=== PATIENT | male | born 1985 | race Caucasian/White ===

== ENCOUNTER 2017-05-31 13:51 | Inpatient (IN) | payer BC ==
[~2017-05-31] VITALS: Ht 165.1 cm; Wt 117.8 kg
[2017-05-31] MEDS ORDERED: SODIUM CHLORIDE 0.9% 1000ML 1,000 ML IV STA ×2 (15:14→18:31)
--- NOTE | 2017-05-31 15:34 | EMERGENCY ROOM VISIT NOTE ---
History First contact with patient: 15:05 Chief Complaint: RESPIRATORY PROBLEMS Stated Complaint: SHALLOW BREATHING, CAN'T GET DEEP BREATH, RIB PAIN History of Present Illness The patient is a 32 year old male who presents to the Emergency Room via private vehicle with complaints of "shallow breathing, can't get deep breath, rib pain". Patient states that for the past few days he has had congestion, and recently flew from [facility]. He isn't feeling nauseous, shivering as well as having left shoulder pain with deep inspiration. He also notes pain in the left inferior rib cage with a deep breath. He feels as though in the left side he cannot take a deep breath. He notes mental cough, with slight mucus production. He denies any smoking, hormone use, recent bone fractures, history of blood clots, history of pneumonia. Review of Systems A complete 10-point Review of Systems was discussed with the patient, with pertinent positives and negatives listed in the History of Present Illness. All remaining Review of Systems questions can be considered negative unless otherwise specified. Past Medical/Surgical History Medical Problems: (1) Sepsis high blood pressure. Family History Heart disease, high blood pressure, cancer. Social History Smoking Status: Never Smoker Lives at home with and son. Employed Current/Historical Medications Scheduled PRN Dextromethorphan-Phenylephrine (Vicks Dayquil Cold & Flu), 1 DOSE PO UD PRN for Cold/Flu Symptoms Pseudoephedrine-Guaifenesin (Mucinex D), 1 TAB PO BID PRN for Congestion Physical Exam Vital Signs Date Time Temp Pulse Resp B/P (MAP) Pulse Ox O2 Delivery O2 Flow Rate FiO2 05/31/17 20:14 106 05/31/17 19:27 109 18 119/94 95 Room Air 05/31/17 17:31 96 20 121/78 99 Room Air 05/31/17 16:11 109 05/31/17 15:54 96 Room Air 05/31/17 15:54 104 20 146/89 98 Room Air 05/31/17 14:08 92 Room Air 05/31/17 13:58 37.6 120 18 145/91 92 Room Air Physical Exam VITAL SIGNS - Vital signs and nursing notes were reviewed. Stable. He is tachycardic at 120 bpm, and is saturating on room air at 92%. GENERAL -32-year-old male appearing his stated age who is in no acute distress. Communicates well with provider and answers questions appropriately. SKIN - Without rashes. No petechial rashes. HEAD - NC/AT. EYES - PERRL with EOMI bilaterally. Sclera anicteric. Palpebral conjunctiva pink and moist with no injection noted. EARS - No deformities of external structures noted on gross examination bilaterally. NOSE - Midline and without cyanosis. No epistaxis or purulent drainage noted. MOUTH/OROPHARYNX - Without perioral cyanosis. NECK - Neck with FROM. LUNGS - Chest wall symmetric without accessory muscle use, intercostals retractions, or central cyanosis. Decreased breath sounds in the left lower lobe. CARDIAC - RRR with S1/S2. No murmur, rubs, or gallops appreciated. ABDOMEN - Abdominal contour normal without pulsations or visible masses. BS normoactive all four quadrants. No tenderness, palpable masses, hepatosplenomegaly, or ascites noted. EXTREMITIES - No clubbing or peripheral cyanosis. No pretibial edema present. + 5/5 strength noted in UE/LE bilaterally. NEUROLOGIC - Cranial nerves II through XII grossly intact. Sensory intact to light touch throughout. PSYCH - A&O, and cooperates fully with examiner. Pt is very pleasant and interacts well with examiner. Medical Decision & Procedures ER Provider Diagnostic Interpretation: CHEST ONE VIEW PORTABLE CLINICAL HISTORY: Dyspnea COMPARISON STUDY: No previous studies for comparison. FINDINGS: The heart is normal in size. There is a left basilar airspace opacity, likely representing a pneumonia. Correlation with clinical symptoms is recommended. There are no pleural effusions. There is an azygos fissure.[ IMPRESSION: Left basal airspace opacity possibly representing a pneumonia. Please correlate with clinical findings. Radiographic follow-up is recommended. Electronically signed by: Marcelino Romero M.D. 05/31/2017 4:09 PM Dictated Date/Time: 05/31/2017 4:[address] ANGIOGRAM OF THE CHEST CLINICAL HISTORY: Shortness of breath, atypical chest pain. Abnormal chest x-ray. COMPARISON STUDY: Chest x-ray dated 05/31/2017 TECHNIQUE: Following the IV administration of 107 mL of Optiray-320, CT angiogram of the thorax was performed from the thoracic inlet to the lung bases utilizing the pulmonary embolus protocol. Images are reviewed in the axial, sagittal, and coronal planes. IV contrast was administered without complication. MIP imaging was performed. A dose lowering technique was utilized adhering to the principles of ALARA. CT DOSE: 671.30 mGycm FINDINGS: Incidental note is made of an azygos lobe No pathologically enlarged axillary mediastinal or hilar lymph nodes were visualized. There was no evidence of thoracic aortic dilatation. There were no pulmonary artery filling defects to indicate acute pulmonary embolism. There is a trace left pleural effusion There is left lower lobe pulmonary consolidation with air bronchograms. Although this is slightly wedge-shaped and pleural-based, enhancing vessels are seen coursing through the abnormal parenchyma. There are no definite pulmonary artery filling defects to indicate an embolus. A pneumonia is therefore favored over a pulmonary infarct. If the patient's signs and symptoms do not support the diagnosis of a pneumonia, then correlation with leg ultrasonography should be obtained in follow-up IMPRESSION: 1. There are no pulmonary artery filling defects to indicate acute pulmonary embolism 2. Peripheral pleural-based left lower lobe consolidation with associated tiny left pleural effusion. As stated above, a pneumonia is favored over a pulmonary infarct. If the patient's signs and symptoms do not support the diagnosis of a pneumonia, then correlation with leg ultrasonography should be obtained in follow-up. Electronically signed by: Marcelino Romero M.D. 05/31/2017 6:15 PM Dictated Date/Time: 05/31/2017 6:07 PM Laboratory Results 05/31/17 15:45 Red Blood Count 4.68, Mean Corpuscular Volume 82.3, Mean Corpuscular Hemoglobin 28.6, Mean Corpuscular Hemoglobin Concent 34.8, Mean Platelet Volume 8.6, Neutrophils (%) (Auto) 79.1, Lymphocytes (%) (Auto) 10.8, Monocytes (%) (Auto) 8.7, Eosinophils (%) (Auto) 0.8, Basophils (%) (Auto) 0.2, Neutrophils # (Auto) 12.15, Lymphocytes # (Auto) 1.66, Monocytes # (Auto) 1.33, Eosinophils # (Auto) 0.13, Basophils # (Auto) 0.03 05/31/17 15:45 Test 05/31/17 15:45 05/31/17 15:54 05/31/17 18:40 White Blood Count 15.36 K/uL (4.8-10.8) Red Blood Count 4.68 M/uL (4.7-6.1) Hemoglobin 13.4 g/dL (14.0-18.0) Hematocrit 38.5 % (42-52) Mean Corpuscular Volume 82.3 fL (80-100) Mean Corpuscular Hemoglobin 28.6 pg (25-34) Mean Corpuscular Hemoglobin Concent 34.8 g/dl (32-36) Platelet Count 357 K/uL (130-400) Mean Platelet Volume 8.6 fL (7.4-10.4) Neutrophils (%) (Auto) 79.1 % Lymphocytes (%) (Auto) 10.8 % Monocytes (%) (Auto) 8.7 % Eosinophils (%) (Auto) 0.8 % Basophils (%) (Auto) 0.2 % Neutrophils # (Auto) 12.15 K/uL (1.4-6.5) Lymphocytes # (Auto) 1.66 K/uL (1.2-3.4) Monocytes # (Auto) 1.33 K/uL (0.11-0.59) Eosinophils # (Auto) 0.13 K/uL (0-0.5) Basophils # (Auto) 0.03 K/uL (0-0.2) RDW Standard Deviation 36.8 fL (36.4-46.3) RDW Coefficient of Variation 12.3 % (11.5-14.5) Immature Granulocyte % (Auto) 0.4 % Immature Granulocyte # (Auto) 0.06 K/uL (0.00-0.02) Prothrombin Time 10.8 SECONDS (9.0-12.0) Prothromb Time International Ratio 1.0 (0.9-1.1) Activated Partial Thromboplast Time 31.9 SECONDS (21.0-31.0) Partial Thromboplastin Ratio 1.2 Anion Gap 8.0 mmol/L (3-11) Est Creatinine Clear Calc Drug Dose 144.9 ml/min Estimated GFR () 132.4 Estimated GFR (Non- 114.2 BUN/Creatinine Ratio 10.2 (10-20) Calcium Level 9.2 mg/dl (8.5-10.1) Magnesium Level 2.3 mg/dl (1.8-2.4) Total Bilirubin 0.6 mg/dl (0.2-1) Aspartate Amino Transf (AST/SGOT) 11 U/L (15-37) Alanine Aminotransferase (ALT/SGPT) 20 U/L (12-78) Alkaline Phosphatase 75 U/L (45-117) Troponin I < 0.015 ng/ml (0-0.045) Total Protein 8.0 gm/dl (6.4-8.2) Albumin 3.5 gm/dl (3.4-5.0) Globulin 4.5 gm/dl (2.5-4.0) Albumin/Globulin Ratio 0.8 (0.9-2) Thyroid Stimulating Hormone (TSH) 1.060 uIu/ml (0.300-4.500) Bedside D-Dimer > 450 ng/mlFEU (0-450) Bedside Troponin I < 0.030 ng/ml (0-0.045) Lactic Acid Level 1.0 mmol/L (0.4-2.0) Medications Administered Medications (Trade) Dose Ordered Sig/[place] Route Start Time Stop Time Status Last Admin Dose Admin Sodium Chloride 1,000 ml @ 999 mls/hr Q1H1M STAT IV 05/31/17 15:14 05/31/17 16:14 DC 05/31/17 15:56 999 MLS/HR Ceftriaxone Sodium (Rocephin Inj) 1 gm NOW STAT IV 05/31/17 18:30 05/31/17 18:32 DC 05/31/17 19:15 1 GM Azithromycin (Zithromax Tab) 500 mg NOW STAT PO 05/31/17 18:30 05/31/17 18:32 DC 05/31/17 19:15 500 MG Sodium Chloride 1,000 ml @ 999 mls/hr Q1H1M STAT IV 05/31/17 18:31 05/31/17 19:31 DC 05/31/17 19:15 999 MLS/HR Acetaminophen (Tylenol Tab) 650 mg NOW STAT PO 05/31/17 19:27 05/31/17 19:28 DC 05/31/17 19:36 650 MG Medical Decision Patient was seen and evaluated as above. He presents to us today with inspiratory left anterior rib pain, fever, and tachycardia. He has a cough with minimal production. Initial differential diagnoses were concerning for that of NH, PE and pneumonia. Chest x-ray is concerning for that of a pneumonia. Because of the patient's presentation I was still concerned about pulmonary embolism, and the d-dimer was high. CT scan of the chest was obtained. Results as above. No PE. Again definition of the pneumonia. Leukocytosis of 15.36. He was bolused with longer normal saline and found to be continued tachycardic at 113. Another liter of fluid was added. Hemoglobin low at 13.4. Coags normal. No evidence of kidney or liver failure. Troponin negative. 1 g of Rocephin IV as well as 500 mg of azithromycin were given for the pneumonia. I discussed the case with the attending physician, and subsequent to the hospitalist. Benefits versus risks of staying in the hospital for further evaluation and management was had with the patient, and the decision was made to stay. Please refer to further documentation regarding his stay. Patient's bedside EKG does reveal sinus tachycardia. No ectopy or ischemic change. In evaluation treatment this patient following differential diagnoses were entertained: Pneumonia, NH, PE, pericarditis, pleurisy, among others. Impression Primary Impression: Pneumonia Additional Impression: Anemia Departure Information Dispostion Admitted as an inpatient Condition FAIR Referrals No Doctor, Assigned (PCP) Patient Instructions My [facility] Problem Qualifiers
--- NOTE | 2017-05-31 16:10 | DIAGNOSTIC IMAGING REPORT ---
CHEST ONE VIEW PORTABLE CLINICAL HISTORY: Dyspnea COMPARISON STUDY: No previous studies for comparison. FINDINGS: The heart is normal in size. There is a left basilar airspace opacity, likely representing a pneumonia. Correlation with clinical symptoms is recommended. There are no pleural effusions. There is an azygos fissure.[ IMPRESSION: Left basal airspace opacity possibly representing a pneumonia. Please correlate with clinical findings. Radiographic follow-up is recommended. Electronically signed by: Marcelino Romero M.D. 05/31/2017 4:09 PM Dictated Date/Time: 05/31/2017 4:07 PM
[2017-05-31 16:13] LABS: POINT OF CARE TROPONIN I < 0.030 ng/ml (0-0.045)
[2017-05-31] MEDS ORDERED: PSEU60TA80 PO (16:16)
[2017-05-31] MEDS ORDERED: DEXT1CAP9 PO (16:16)
[2017-05-31] MEDS ORDERED: OPTIRAY 320 IV PRN (16:30)
[2017-05-31 16:54] LABS: BASO % 0.2 %; BASO ABS # 0.03 K/uL (0-0.2); COMPLETE YES; EOS % 0.8 %; HEMATOCRIT 38.5 % (42-52); IG% 0.4 %; LYMPH % 10.8 %; LYMPH ABS # 1.66 K/uL (1.2-3.4); MEAN CELL VOLUME 82.3 fL (80-100); MEAN CORPUSCULAR HEMOGLOBIN 28.6 pg (25-34); MEAN CORPUSCULAR HGB CONC 34.8 g/dl (32-36); MEAN PLATELET VOLUME 8.6 fL (7.4-10.4); MONO % 8.7 %; NEUT % 79.1 %; PLATELET COUNT 357 K/uL (130-400); RED BLOOD COUNT 4.68 M/uL (4.7-6.1); WHITE BLOOD COUNT 15.36 K/uL (4.8-10.8)
[2017-05-31 17:02] LABS: ALT/SGPT 20 U/L (12-78); AST/SGOT 11 U/L (15-37); BLOOD UREA NITROGEN 9 mg/dl (7-18); BUN/CREATININE RATIO 10.2 (10-20); CALCIUM 9.2 mg/dl (8.5-10.1); CARBON DIOXIDE 28 mmol/L (21-32); CHLORIDE 103 mmol/L (98-107); GLUCOSE 91 mg/dl (70-99); MAGNESIUM 2.3 mg/dl (1.8-2.4); POTASSIUM 3.5 mmol/L (3.5-5.1); SODIUM 139 mmol/L (136-145)
[2017-05-31 17:13] LABS: ALB/GLOB RATIO 0.8 (0.9-2); ALKALINE PHOSPHATASE 75 U/L (45-117)
[2017-05-31 17:19] LABS: PARTIAL THROMBOPLASTIN RATIO 1.2; PROTHROMBIN TIME (PATIENT) 10.8 SECONDS (9.0-12.0)
--- NOTE | 2017-05-31 18:16 | DIAGNOSTIC IMAGING REPORT ---
CT ANGIOGRAM OF THE CHEST CLINICAL HISTORY: Shortness of breath, atypical chest pain. Abnormal chest x-ray. COMPARISON STUDY: Chest x-ray dated 05/31/2017 TECHNIQUE: Following the IV administration of 107 mL of Optiray-320, CT angiogram of the thorax was performed from the thoracic inlet to the lung bases utilizing the pulmonary embolus protocol. Images are reviewed in the axial, sagittal, and coronal planes. IV contrast was administered without complication. MIP imaging was performed. A dose lowering technique was utilized adhering to the principles of ALARA. CT DOSE: 671.30 mGycm FINDINGS: Incidental note is made of an azygos lobe No pathologically enlarged axillary mediastinal or hilar lymph nodes were visualized. There was no evidence of thoracic aortic dilatation. There were no pulmonary artery filling defects to indicate acute pulmonary embolism. There is a trace left pleural effusion There is left lower lobe pulmonary consolidation with air bronchograms. Although this is slightly wedge-shaped and pleural-based, enhancing vessels are seen coursing through the abnormal parenchyma. There are no definite pulmonary artery filling defects to indicate an embolus. A pneumonia is therefore favored over a pulmonary infarct. If the patient's signs and symptoms do not support the diagnosis of a pneumonia, then correlation with leg ultrasonography should be obtained in follow-up IMPRESSION: 1. There are no pulmonary artery filling defects to indicate acute pulmonary embolism 2. Peripheral pleural-based left lower lobe consolidation with associated tiny left pleural effusion. As stated above, a pneumonia is favored over a pulmonary infarct. If the patient's signs and symptoms do not support the diagnosis of a pneumonia, then correlation with leg ultrasonography should be obtained in follow-up. Electronically signed by: Marcelino Romero M.D. 05/31/2017 6:15 PM Dictated Date/Time: 05/31/2017 6:07 PM
[2017-05-31] MEDS ORDERED: CEFTRIAXONE SOD INJ 1 GM ADDVIAL IV STA (18:30)
[2017-05-31] MEDS ORDERED: AZITHROMYCIN 250 MG TAB PO STA (18:30)
[2017-05-31] MEDS ORDERED: ACETAMINOPHEN 325 MG TAB PO STA (19:27)
[2017-05-31] MEDS ORDERED: KETOROLAC TROMETHAMINE 30 MG/ML VIAL IV PRN (20:45)
[2017-05-31] MEDS ORDERED: IBUPROFEN 200 MG TAB PO PRN (20:45)
[2017-05-31] MEDS ORDERED: LORAZEPAM 2 MG/ML 1 ML VIAL IV PRN (20:45)
[2017-05-31] MEDS ORDERED: ONDANSETRON INJ 2 MG/ML 2 ML VIAL IV PRN (20:45)
[2017-05-31] MEDS ORDERED: INFLUENZA ADMINISTRATION CHARGE ONE (20:45)
[2017-05-31] MEDS ORDERED: PNEUMOCOCCAL POLYSACCHARIDES 25 MCG/0.5 ML VIAL/SYR IM. ONE (20:45)
[2017-05-31] MEDS ORDERED: ACETAMINOPHEN 325 MG TAB PO PRN (20:45)
[2017-05-31] MEDS ORDERED: LACTATED RINGER'S 1000ML 1,000 ML IV ONE (21:00)
[2017-05-31] MEDS: LEVOFLOXACIN 750 MG TAB PO SCH (21:51)
[2017-05-31] MEDS ORDERED: ENOXAPARIN 40 MG/0.4 ML SYR SQ SCH (22:00)
[2017-05-31 22:42] VITALS: BP 151/86; PULSE 102; TEMP 37.3; O2SAT 95; Ht 165.1 cm; Wt 117.8 kg
[2017-06-01 00:56] VITALS: BP 137/82; PULSE 88; TEMP 36.9; O2SAT 96
[2017-06-01 06:49] LABS: BASO % 0.3 %; BASO ABS # 0.04 K/uL (0-0.2); COMPLETE YES; EOS % 1.4 %; HEMATOCRIT 36.8 % (42-52); IG% 0.4 %; LYMPH % 18.7 %; LYMPH ABS # 2.69 K/uL (1.2-3.4); MEAN CELL VOLUME 82.9 fL (80-100); MEAN CORPUSCULAR HEMOGLOBIN 27.7 pg (25-34); MEAN CORPUSCULAR HGB CONC 33.4 g/dl (32-36); MEAN PLATELET VOLUME 8.2 fL (7.4-10.4); MONO % 8.3 %; NEUT % 70.9 %; PLATELET COUNT 286 K/uL (130-400); RED BLOOD COUNT 4.44 M/uL (4.7-6.1); WHITE BLOOD COUNT 14.36 K/uL (4.8-10.8)
--- NOTE | 2017-06-01 07:23 | HISTORY & PHYSICAL EXAMINATION ---
DATE OF ADMISSION: 05/31/2017 PRIMARY CARE DOCTOR: None CHIEF COMPLAINT: Cough and shortness of breath. HISTORY OF PRESENT ILLNESS: History obtained from patient and records. No significant medical history. Few days' history of cough productive of yellow sputum. He denies aspiration. Recent travel, sick contacts. Has pleuritic chest pain on the left, sob. At the Emergency Room CAT scan of the chest showed pleural based left lower lobe consolidation, effusion and pneumonia. Patient was given ceftriaxone and azithromycin in the ER. MEDICAL HISTORY: as above. Has not had seasonal flu shot for this year. No hx of pneumococcal vaccine. SURGERIES: Wound repair. HOME MEDICATIONS: Include decongestants. ALLERGIES: No known drug allergies. FAMILY HISTORY: Hypertension. PERSONAL AND SOCIAL HISTORY: Nonsmoker. 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 REVIEW OF SYSTEMS: As per HPI, all other ROS negative. PHYSICAL EXAMINATION: VITAL SIGNS: Blood pressure was noted to be 145/91, pulse rate 120, RR 18, temperature 36.6 and sats 98 on room air. GENERAL: Slightly obese, in no respiratory distress, slightly uncomfortable. SKIN: Normal color. HEENT: [place] palpebral conjunctivae. Dry mucosa. NECK: Short neck. LUNGS: Decreased effort HEART: Tachycardic. ABDOMEN: Soft. EXTREMITIES: No edema, no tenderness. NEUROLOGIC: No gross focality. LABORATORIES: Hemoglobin was noted to be 13.4, white cell count 14 platelets 357 Sodium 136 chloride 103, CO2 28, BUN 9, creatinine 0.9, glucose was noted to be 91. CTA as above. ASSESSMENT: Sepsis secondary to community-acquired pneumonia complicated pneumonia w/ note pleural effusion. PLAN: GMF Cultures, Levaquin analgesia DVT prophylaxis, Lovenox subQ. Full code. MTDD
[2017-06-01 07:27] VITALS: BP 107/68; PULSE 89; TEMP 37; O2SAT 96
[2017-06-01] MEDS ORDERED: LEVOFLOXACIN CONSULT ACTIVE SCH (08:00)
[2017-06-01] MEDS: LEVOFLOXACIN 750 MG TAB PO SCH (10:24)
[2017-06-01] MEDS ORDERED: INFLUENZA VIRUS QUAD VACCINE 0.5 ML SYR IM. ONE (13:00)
[2017-06-01] MEDS ORDERED: INFLUENZA ADMINISTRATION CHARGE ONE (13:00)
[2017-06-01 15:08] VITALS: BP 130/83; PULSE 81; TEMP 36.7; O2SAT 95
--- NOTE | 2017-06-01 15:36 | Progress Note ---
Subjective Date of Service: Jun 01, 2017. Subjective Pt evaluation today including: conversation w/ patient, physical exam, lab review, review of studies, review of inpatient medication list Saw/examined the patient in room 414 He's doing well, states he feels much better No fevers overnight +cough, no sputum No chest pain Problem List Medical Problems: (1) Anemia Status: Acute (2) Pneumonia Status: Acute Review of Systems Constitutional: + fever (resolved), + chills Respiratory: + cough, + shortness of breath, No wheezing, No dyspnea on exertion, No dyspnea at rest, No hemoptysis Cardiac: No chest pain, No edema, No palpitations Medications Current Inpatient Medications Medications (Trade) Dose Ordered Sig/[place] Route Start Time Stop Time Status Last Admin Dose Admin Ioversol (Optiray 320) 111 ml UD PRN IV 05/31/17 16:30 06/04/17 16:29 Enoxaparin Sodium (Lovenox Inj) 40 mg Q24H SQ 05/31/17 22:00 06/30/17 21:59 05/31/17 21:52 40 MG Acetaminophen (Tylenol Tab) 650 mg Q4H PRN PO 05/31/17 20:45 06/30/17 20:44 06/01/17 10:24 650 MG Levofloxacin (Consult) 1 ea DAILY N/A 06/01/17 08:00 07/01/17 08:59 06/01/17 10:21 1 EA Ondansetron HCl (Zofran Inj) 4 mg Q6H PRN IV 05/31/17 20:45 06/30/17 20:44 Lorazepam (Ativan Inj) 0.5 mg Q4H PRN IV 05/31/17 20:45 06/30/17 20:44 Ketorolac Tromethamine (Toradol Inj) 30 mg Q6H PRN IV 05/31/17 20:45 06/05/17 20:44 Ibuprofen (Advil Tab) 200 mg Q6H PRN PO 05/31/17 20:45 06/30/17 20:44 Levofloxacin (Levaquin Tab) 750 mg DAILY@11 PO 05/31/17 21:00 06/07/17 20:59 06/01/17 10:24 750 MG Objective Vital Signs Date Time Temp Pulse Resp B/P (MAP) Pulse Ox O2 Delivery O2 Flow Rate FiO2 06/01/17 09:10 Room Air 06/01/17 07:27 37.0 89 16 107/68 (81) 96 Room Air 06/01/17 00:56 36.9 88 18 137/82 (100) 96 Room Air 05/31/17 23:45 Room Air 05/31/17 22:42 37.3 102 20 151/86 95 Room Air 05/31/17 20:14 106 05/31/17 19:27 109 18 119/94 95 Room Air 05/31/17 17:31 96 20 121/78 99 Room Air 05/31/17 16:11 109 05/31/17 15:54 96 Room Air 05/31/17 15:54 104 20 146/89 98 Room Air Physical Exam General Appearance: no apparent distress Respiratory/Chest: lungs clear, normal breath sounds, no respiratory distress, no accessory muscle use Cardiovascular: regular rate, rhythm, no edema, no murmur Laboratory Results Last 24 Hours Test 05/31/17 15:45 05/31/17 15:54 05/31/17 18:40 06/01/17 06:33 White Blood Count 15.36 K/uL 14.36 K/uL Red Blood Count 4.68 M/uL 4.44 M/uL Hemoglobin 13.4 g/dL 12.3 g/dL Hematocrit 38.5 % 36.8 % Mean Corpuscular Volume 82.3 fL 82.9 fL Mean Corpuscular Hemoglobin 28.6 pg 27.7 pg Mean Corpuscular Hemoglobin Concent 34.8 g/dl 33.4 g/dl Platelet Count 357 K/uL 286 K/uL Mean Platelet Volume 8.6 fL 8.2 fL Neutrophils (%) (Auto) 79.1 % 70.9 % Lymphocytes (%) (Auto) 10.8 % 18.7 % Monocytes (%) (Auto) 8.7 % 8.3 % Eosinophils (%) (Auto) 0.8 % 1.4 % Basophils (%) (Auto) 0.2 % 0.3 % Neutrophils # (Auto) 12.15 K/uL 10.18 K/uL Lymphocytes # (Auto) 1.66 K/uL 2.69 K/uL Monocytes # (Auto) 1.33 K/uL 1.19 K/uL Eosinophils # (Auto) 0.13 K/uL 0.20 K/uL Basophils # (Auto) 0.03 K/uL 0.04 K/uL RDW Standard Deviation 36.8 fL 37.3 fL RDW Coefficient of Variation 12.3 % 12.4 % Immature Granulocyte % (Auto) 0.4 % 0.4 % Immature Granulocyte # (Auto) 0.06 K/uL 0.06 K/uL Prothrombin Time 10.8 SECONDS Prothromb Time International Ratio 1.0 Activated Partial Thromboplast Time 31.9 SECONDS Partial Thromboplastin Ratio 1.2 Sodium Level 139 mmol/L Potassium Level 3.5 mmol/L Chloride Level 103 mmol/L Carbon Dioxide Level 28 mmol/L Anion Gap 8.0 mmol/L Blood Urea Nitrogen 9 mg/dl Creatinine 0.90 mg/dl Est Creatinine Clear Calc Drug Dose 144.9 ml/min Estimated GFR () 132.4 Estimated GFR (Non- 114.2 BUN/Creatinine Ratio 10.2 Random Glucose 91 mg/dl Calcium Level 9.2 mg/dl Magnesium Level 2.3 mg/dl Total Bilirubin 0.6 mg/dl Aspartate Amino Transf (AST/SGOT) 11 U/L Alanine Aminotransferase (ALT/SGPT) 20 U/L Alkaline Phosphatase 75 U/L Troponin I < 0.015 ng/ml Total Protein 8.0 gm/dl Albumin 3.5 gm/dl Globulin 4.5 gm/dl Albumin/Globulin Ratio 0.8 Thyroid Stimulating Hormone (TSH) 1.060 uIu/ml Bedside D-Dimer > 450 ng/mlFEU Bedside Troponin I < 0.030 ng/ml Lactic Acid Level 1.0 mmol/L Assessment and Plan This is a 32 year old male presented with sepsis secondary to pneumonia Sepsis secondary to CAP patient presented with +fevers, +tachycardia, +leukocytosis CXR suggests pneumonia of LLL WBC trending down Afebrile x24 hours States he feels fine and very eager to go home Plan is to discharge patient home with Levaquin for a total of 7 days, repeat CXR on Tuesday, June 03, repeat blood work on Tuesday as well to trend WBC Follow-up with Dr. Trujillo on June 09 at 10:45 at [facility] DVT ppx Lovenox FULL CODE
[2017-06-01] MEDS ORDERED: LVQ750 PO (15:38)
--- NOTE | 2017-06-01 15:41 | Discharge Instructions ---
Discharge Instructions Date of Service Jun 01, 2017. Admission Reason for Admission: Sepsis Discharge Discharge Diagnosis / Problem: Sepsis (severe infection) seconary to Community Acquired Pneumonia Discharge Goals Goal(s): Decrease discomfort, Improve function, Diagnostic testing, Therapeutic intervention Activity Recommendations Activity Limitations: resume your previous activity . Instructions / Follow-Up Instructions / Follow-Up Please follow-up with Dr. Trujillo on June 09 at 10:45AM at [facility] * Please take Levaquin (antibiotic) 750mg for 6 days * You will need a repeat chest x-ray and blood work - please obtain this prior to seeing Dr. Trujillo * Return to work next week (June 06) Current Hospital Diet Patient's current hospital diet: Regular Diet Discharge Diet Recommended Diet: Regular Diet Pending Studies Studies pending at discharge: no Medical Emergencies . Who to Call and When: Medical Emergencies: If at any time you feel your situation is an emergency, please call 911 immediately. . Non-Emergent Contact Non-Emergency issues call your: Primary Care Provider . . "Provider Documentation" section prepared by Jaiden Strange. . VTE Core Measure Inpt VTE Proph given/why not?: Enoxaparin (Lovenox)SQ
--- NOTE | 2017-06-01 15:43 | Discharge Summary ---
Discharge Summary Date of Service Jun 01, 2017. Discharge Summary Admission Date: May 31, 2017 at 20:06 Discharge Date: Jun 01, 2017 Discharge Disposition: Home Principal Diagnosis: Sepsis secondary to CAP Medication Reconciliation New Medications: Levofloxacin (Levofloxacin) 750 Mg Tab 750 MG PO DAILY for 6 Days, #6 TAB Discontinued Medications: Dextromethorphan-Phenylephrine (Vicks Dayquil Cold & Flu) 1 Cap Cap 1 DOSE PO UD PRN for Cold/Flu Symptoms TAKE PER PACKAGE DIRECTIONS Pseudoephedrine-Guaifenesin (Mucinex D) 1 Tab Tab 1 TAB PO BID PRN for Congestion, TAB TAKE PER PACKAGE DIRECTIONS Admission Information HPI (per Admitting provider): DATE OF ADMISSION: 05/31/2017 PRIMARY CARE DOCTOR: ____ CHIEF COMPLAINT: Cough and shortness of breath. No significant medical history was obtained from patient's records. HISTORY OF PRESENT ILLNESS: Medical history is significant for a few days history of cough productive of yellow sputum. He denies aspiration ____ recent travel, sick contacts. Has pleuritic chest pain on the left. At the Emergency Room CAT scan of the chest showed pleural based left ____ pleural effusion and pneumonia. The patient was given ceftriaxone and azithromycin in the ER. MEDICAL HISTORY: ____ not had recent ____ flu shot. No ____ the past. SURGERIES: Wound repair. HOME MEDICATIONS: Include decongestants. ALLERGIES: No known drug allergies. FAMILY HISTORY: Hypertension. PERSONAL AND SOCIAL HISTORY: Nonsmoker. No chronic intake of alcoholic beverages ____ chemical plant employee. REVIEW OF SYSTEMS: As per HPI, others negative. PHYSICAL EXAMINATION: VITAL SIGNS: Blood pressure was noted to be 145/91, pulse rate 120, RR 18, temperature 36.6 and sats 98 ____ on room air. GENERAL: Slightly obese, in no respiratory distress, slightly uncomfortable. SKIN: Normal color. HEENT: [place] palpebral conjunctivae. Dry mucosa. NECK: Short neck. LUNGS: Decreased effort ____ HEART: Tachycardic. ABDOMEN: Soft. EXTREMITIES: No edema noticed. NEUROLOGIC: No gross focality. LABORATORIES: Hemoglobin was noted to be 13.4, hematocrit 38.5 ____ white cell count ____ platelets 357 ____ Sodium 131 ____ chloride 103, CO2 28, BUN 9, creatinine 0.9, glucose was noted to be 91. CTA as above. ASSESSMENT: Sepsis secondary to community-acquired pneumonia complicated pneumonia w/ note pleural effusion. PLAN: GMF Cultures, Levaquin analgesia DVT prophylaxis, Lovenox subQ. Full code. Hospital Course This is a 32 year old male presented with sepsis secondary to pneumonia Sepsis secondary to CAP patient presented with +fevers, +tachycardia, +leukocytosis CXR suggests pneumonia of LLL WBC trending down Afebrile x24 hours States he feels fine and very eager to go home Plan is to discharge patient home with Levaquin for a total of 7 days, repeat CXR on Tuesday, June 03, repeat blood work on Tuesday as well to trend WBC Follow-up with Dr. Trujillo on June 09 at 10:45 at [facility] DVT ppx ambulation FULL CODE Total time spent on discharge = 35 minutes This includes examination of the patient, discharge planning, medication reconciliation, and communication with other providers. Discharge Instructions Please follow-up with Dr. Trujillo on June 09 at 10:45AM at [facility] * Please take Levaquin (antibiotic) 750mg for 6 days * You will need a repeat chest x-ray and blood work - please obtain this prior to seeing Dr. Trujillo * Return to work next week (June 06)
[2017-06-01 16:26] VITALS: BP 130/83; PULSE 81; TEMP 36.7; O2SAT 95
== END 2017-06-01 17:09 | disposition home or self-care (01) | DRG 871 ==
LOC: C.EDB 13:53 → C.4E 20:06 → ENRESERV 20:19
PROVIDERS: ADMIT Family Medicine; ATTEND Family Medicine
DX: A41.9 Sepsis, unspecified organism (principal); J18.9 Pneumonia, unspecified organism; J90 Pleural effusion, not elsewhere classified; Z82.49 Family history of ischemic heart disease and other diseases of the circulatory system